=== PATIENT | male | born 1995 | race Caucasian/White ===

== ENCOUNTER 2017-09-17 13:54 | Emergency (ER) | payer SELFPAY ==
[~2017-09-17] VITALS: Ht 193 cm; Wt 87.3 kg
[2017-09-17 13:55] VITALS: TEMP 36.6; Ht 193 cm; Wt 87.3 kg
[2017-09-17] MEDS ORDERED: ONDANSETRON INJ 2 MG/ML 2 ML VIAL IV STA (14:11)
[2017-09-17] MEDS ORDERED: MoRPHine SULFATE 10 MG/ML CARP/VIAL IV STA (14:12)
[2017-09-17 14:29] LABS: BASO % 0.1 %; BASO ABS # 0.02 K/uL (0-0.2); HEMATOCRIT 45.8 % (42-52); HEMOGLOBIN 16.3 g/dL (14.0-18.0); IG# 0.03 K/uL (0.00-0.02); LYMPH ABS # 0.69 K/uL (1.2-3.4); MEAN CELL VOLUME 87.2 fL (80-100); MEAN CORPUSCULAR HGB CONC 35.6 g/dl (32-36); MEAN PLATELET VOLUME 10.1 fL (7.4-10.4); MONO % 3.9 %; MONO ABS # 0.54 K/uL (0.11-0.59); NEUT % 90.8 %; NEUT ABS # 12.65 K/uL (1.4-6.5); PLATELET COUNT 197 K/uL (130-400); RED CELL DISTRIBUTION WIDTH CV 12.3 % (11.5-14.5); RED CELL DISTRIBUTION WIDTH SD 39.4 fL (36.4-46.3); WHITE BLOOD COUNT 13.93 K/uL (4.8-10.8)
[2017-09-17 14:49] LABS: ALBUMIN 4.6 gm/dl (3.4-5.0); CALCIUM 9.5 mg/dl (8.5-10.1); CREATININE 0.92 mg/dl (0.60-1.40); TOTAL PROTEIN 7.8 gm/dl (6.4-8.2)
--- NOTE | 2017-09-17 15:41 | DIAGNOSTIC IMAGING REPORT ---
ABDOMEN 2VIEW W/PA CHEST RTN CLINICAL HISTORY: 22 years-old Male presenting with Generalized abdominal pain. TECHNIQUE: PA view of the chest and supine and upright views of the abdomen were obtained. COMPARISON: Chest x-ray from 11/23/[address] of the abdomen and pelvis from 07/20/2012. FINDINGS: Cardiomediastinal silhouette normal. Lungs and pleural spaces clear. Nonobstructive bowel gas pattern. No gross pneumoperitoneum. Allowing for bowel gas and stool, no calcifications to suggest nephrolithiasis. Posttraumatic deformity of the mid diaphysis of the right clavicle. IMPRESSION: 1. No acute cardiopulmonary disease. 2. No radiographic evidence of acute intra-abdominal pathology. Electronically signed by: Luis A Rojas M.D. 09/17/2017 3:40 PM Dictated Date/Time: 09/17/2017 3:38 PM
[2017-09-17] MEDS ORDERED: OPTIRAY 320 IV PRN (16:00)
--- NOTE | 2017-09-17 16:56 | DIAGNOSTIC IMAGING REPORT ---
ABD/PELVIS IV CONTRAST ONLY CLINICAL HISTORY: 22 years-old Male presenting with Generalized abdominal pain/elevated white count. TECHNIQUE: Multidetector CT of the abdomen and pelvis was performed after the administration of intravenous contrast. IV contrast: 87 mL of Optiray 320. A dose lowering technique was used consistent with the principles of ALARA (as low as reasonably achievable). COMPARISON: 07/20/2012. CT DOSE (mGy.cm): The estimated cumulative dose is 341.44 mGy.cm. 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 Lung bases: Minimal basilar opacities, likely atelectasis. Normal heart size. No pericardial or pleural effusion. Liver: Normal morphology. No liver lesion. Patent hepatic vasculature. Biliary: No intrahepatic or extrahepatic biliary ductal dilatation. Normal gallbladder. Pancreas: Normal. Spleen: Normal. Adrenal glands: Normal. Kidneys and ureters: Normal. No hydronephrosis. Bladder: Normal. Pelvic organs: Prostate and seminal vesicles normal. Left varicocele may be present. Bowel: Multiple appendicoliths noted. The appendix is nonsignificant dilated and contains gas. No inflammatory change in the right lower quadrant. No bowel obstruction. Peritoneal cavity: No free fluid or intraperitoneal gas. Lymph nodes: No enlarged lymph nodes in the abdomen or pelvis. Vasculature: Aorta and IVC patent and normal in caliber. Abdominal wall: Normal. Musculoskeletal: Normal. IMPRESSION: 1. No acute intra-abdominal pathology. 2. Appendicoliths without evidence of appendicitis. 3. Left varicocele. Electronically signed by: Luis A Rojas M.D. 09/17/2017 4:54 PM Dictated Date/Time: 09/17/2017 4:49 PM
[2017-09-17] MEDS ORDERED: HYDR-5688 PO (17:05)
[2017-09-17] MEDS ORDERED: ONDA4TAB10 SL (17:05)
--- NOTE | 2017-09-17 17:06 | EMERGENCY ROOM VISIT NOTE ---
History First contact with patient: 13:58 Chief Complaint: ABDOMINAL PAIN Stated Complaint: ABD PAIN Nursing Triage Summary: triage note: pt reports generalized abd pain since waking up today. pt reports nause. "i forced my self to throw up." History of Present Illness The patient is a 22 year old male who presents to the Emergency Room with complaints of abdominal pain. The patient states he woke up this morning and had abdominal pain. He describes it as "a knot of pain in his stomach." He rates it at the 8 out of 10. The patient also admits to associated nausea but denies any vomiting. Although the patient did try to make himself throw up. The patient denies any change in bowel habits. He had a normal bowel movement this morning. The patient denies any urinary symptoms of frequency, urgency, dysuria or hematuria. The patient denies any history of kidney stones or any abdominal surgeries. Patient denies any chest pain shortness of breath or dizziness. Review of Systems 10 system review was performed and was negative unless stated otherwise history of present illness. Past Medical/Surgical History Medical Problems: (1) Abdominal pain Social History Smoking Status: Never Smoker Alcohol Use: none Drug Use: none Marital Status: single, in relationship Housing Status: lives with family Occupation Status: employed Current/Historical Medications No Active Prescriptions or Reported Meds Physical Exam Vital Signs Date Time Temp Pulse Resp B/P (MAP) Pulse Ox O2 Delivery O2 Flow Rate FiO2 09/17/17 16:55 70 14 133/67 97 Room Air 09/17/17 14:36 64 14 124/63 95 Room Air 09/17/17 13:55 36.6 69 18 126/67 100 Room Air Physical Exam GENERAL: 22-year-old male appears in no acute distress. MENTAL Status: Alert and oriented 3. MOUTH: Mucosa is moist NECK: Supple, no lymphadenopathy noted. No carotid bruits noted. LUNGS: Clear auscultation without wheezes rales or rhonchi. CARDIAC: Regular rate and rhythm without murmur. Pulses is full and equal throughout. BACK: No CVA tenderness noted. ABDOMEN: Positive bowel sounds all 4 quadrants. Soft, mild generalized tenderness to palpation throughout without any specific point tenderness or organomegaly or masses. Negative Esqueda sign negative McBurney's point, no rebound tenderness noted EXTREMITIES: No cyanosis or edema noted. Medical Decision & Procedures ER Provider Diagnostic Interpretation: ABD/PELVIS IV CONTRAST ONLY CLINICAL HISTORY: 22 years-old Male presenting with Generalized abdominal pain/elevated white count. TECHNIQUE: Multidetector CT of the abdomen and pelvis was performed after the administration of intravenous contrast. IV contrast: 87 mL of Optiray 320. A dose lowering technique was used consistent with the principles of ALARA (as low as reasonably achievable). COMPARISON: 07/20/2012. CT DOSE (mGy.cm): The estimated cumulative dose is 341.44 mGy.cm. 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 Lung bases: Minimal basilar opacities, likely atelectasis. Normal heart size. No pericardial or pleural effusion. Liver: Normal morphology. No liver lesion. Patent hepatic vasculature. Biliary: No intrahepatic or extrahepatic biliary ductal dilatation. Normal gallbladder. Pancreas: Normal. Spleen: Normal. Adrenal glands: Normal. Kidneys and ureters: Normal. No hydronephrosis. Bladder: Normal. Pelvic organs: Prostate and seminal vesicles normal. Left varicocele may be present. Bowel: Multiple appendicoliths noted. The appendix is nonsignificant dilated and contains gas. No inflammatory change in the right lower quadrant. No bowel obstruction. Peritoneal cavity: No free fluid or intraperitoneal gas. Lymph nodes: No enlarged lymph nodes in the abdomen or pelvis. Vasculature: Aorta and IVC patent and normal in caliber. Abdominal wall: Normal. Musculoskeletal: Normal. IMPRESSION: 1. No acute intra-abdominal pathology. 2. Appendicoliths without evidence of appendicitis. 3. Left varicocele. Electronically signed by: Luis A Rojas M.D. 09/17/2017 4:54 PM Laboratory Results 09/17/17 14:15 Red Blood Count 5.25, Mean Corpuscular Volume 87.2, Mean Corpuscular Hemoglobin 31.0, Mean Corpuscular Hemoglobin Concent 35.6, Mean Platelet Volume 10.1, Neutrophils (%) (Auto) 90.8, Lymphocytes (%) (Auto) 5.0, Monocytes (%) (Auto) 3.9, Eosinophils (%) (Auto) 0.0, Basophils (%) (Auto) 0.1, Neutrophils # (Auto) 12.65, Lymphocytes # (Auto) 0.69, Monocytes # (Auto) 0.54, Eosinophils # (Auto) 0.00, Basophils # (Auto) 0.02 09/17/17 14:10 Test 09/17/17 14:10 09/17/17 14:15 09/17/17 14:58 Anion Gap 8.0 mmol/L (3-11) Est Creatinine Clear Calc Drug Dose 153.3 ml/min Estimated GFR () 135.4 Estimated GFR (Non- 116.8 BUN/Creatinine Ratio 15.2 (10-20) Calcium Level 9.5 mg/dl (8.5-10.1) Total Bilirubin 0.6 mg/dl (0.2-1) Direct Bilirubin 0.2 mg/dl (0-0.2) Aspartate Amino Transf (AST/SGOT) 11 U/L (15-37) Alanine Aminotransferase (ALT/SGPT) 21 U/L (12-78) Alkaline Phosphatase 75 U/L (45-117) Total Protein 7.8 gm/dl (6.4-8.2) Albumin 4.6 gm/dl (3.4-5.0) Lipase 47 U/L (73-393) White Blood Count 13.93 K/uL (4.8-10.8) Red Blood Count 5.25 M/uL (4.7-6.1) Hemoglobin 16.3 g/dL (14.0-18.0) Hematocrit 45.8 % (42-52) Mean Corpuscular Volume 87.2 fL (80-100) Mean Corpuscular Hemoglobin 31.0 pg (25-34) Mean Corpuscular Hemoglobin Concent 35.6 g/dl (32-36) Platelet Count 197 K/uL (130-400) Mean Platelet Volume 10.1 fL (7.4-10.4) Neutrophils (%) (Auto) 90.8 % Lymphocytes (%) (Auto) 5.0 % Monocytes (%) (Auto) 3.9 % Eosinophils (%) (Auto) 0.0 % Basophils (%) (Auto) 0.1 % Neutrophils # (Auto) 12.65 K/uL (1.4-6.5) Lymphocytes # (Auto) 0.69 K/uL (1.2-3.4) Monocytes # (Auto) 0.54 K/uL (0.11-0.59) Eosinophils # (Auto) 0.00 K/uL (0-0.5) Basophils # (Auto) 0.02 K/uL (0-0.2) RDW Standard Deviation 39.4 fL (36.4-46.3) RDW Coefficient of Variation 12.3 % (11.5-14.5) Immature Granulocyte % (Auto) 0.2 % Immature Granulocyte # (Auto) 0.03 K/uL (0.00-0.02) Urine Color DK YELLOW Urine Appearance TURBID (CLEAR) Urine pH 5.0 (4.5-7.5) Urine Specific [place] 1.027 (1.000-1.030) Urine Protein NEG (NEG) Urine Glucose (UA) NEG (NEG) Urine Ketones 3+ (NEG) Urine Occult Blood NEG (NEG) Urine Nitrite NEG (NEG) Urine Bilirubin NEG (NEG) Urine Urobilinogen NEG (NEG) Urine Leukocyte Esterase NEG (NEG) Urine WBC (Auto) 1-5 /hpf (0-5) Urine RBC (Auto) 0-4 /hpf (0-4) Urine Hyaline Casts (Auto) 5-10 /lpf (0-5) Urine Epithelial Cells (Auto) 0-5 /lpf (0-5) Urine Bacteria (Auto) NEG (NEG) Medications Administered Medications (Trade) Dose Ordered Sig/Mai Route Start Time Stop Time Status Last Admin Dose Admin Ondansetron HCl (Zofran Inj) 4 mg NOW STAT IV 09/17/17 14:11 09/17/17 14:12 DC 09/17/17 14:35 4 MG Morphine Sulfate (MoRPHine SULFATE INJ) 6 mg NOW STAT IV 09/17/17 14:12 09/17/17 14:13 DC 09/17/17 14:36 6 MG ED Course The patient was evaluated. Patient's EMR medication list were reviewed. IV access was obtained. The patient was given morphine 6 mg IV and Zofran 4 mg IV push. CBC and differential, renal profile, LFTs and lipase levels were ordered. Urinalysis was ordered. Abdominal series x-ray was ordered interpreted by the radiologist and myself as above without any acute findings. Labs are reviewed and were unremarkable except for elevated white count at close to 14,000. Urinalysis was negative. A CT of the abdomen pelvis was then ordered with IV contrast. CT was reviewed by the radiologist as above without any acute findings. The patient was informed of the findings and stated that his pain was starting to come back but was tolerable. He stated that he was afraid that the pain would get more severe when he got home I informed the patient I will give him a prescription for some pain meds and anti-nausea medicines. The patient was in agreement with treatment plan was discharged home with a family member driving. Medical Decision Differential diagnoses include reflux, gastritis, gastroenteritis, pancreatitis , cholelithiasis, cholecystitis, appendicitis, mesenteric ischemia, pyelonephritis, urinary tract infection, renal colic, diverticulitis, shingles, bowel obstruction, intussusception, hernia, [place] Drug Monitoring Program Search Results: patient reviewed within database Medication Reconcilliation Current Medication List: was personally reviewed by me Blood Pressure Screening Patient's blood pressure: Normal blood pressure Impression Primary Impression: Abdominal pain Departure Information Dispostion Home / Self-Care Condition GOOD Prescriptions Hydrocodone/Acetaminophen 5MG/325MG ([place] 5MG/325MG) Tab 1-2 TABLET PO Q6 Y for Pain, #20 TAB For Initial Treatment Prov: Renee Charlton PA-C 09/17/17 Ondasetron Odt (ZOFRAN ODT) 4 Mg Tab 4 MG SL Q6H for Nausea, #10 TAB Prov: Renee Charlton PA-C 09/17/17 Referrals No Doctor, Assigned (PCP) Forms HOME CARE DOCUMENTATION FORM, IMPORTANT VISIT INFORMATION Patient Instructions Abdominal Pain - [facility], [facility] Additional Instructions Push fluids. Ibuprofen 600 mg every 6 hours with food for pain. Take [place] as needed for more severe pain. Do not drive while taking the [place]. Take Zofran as needed for nausea. Follow-up with your family doctor in 2 days for recheck. If symptoms worsen, return to ER.
[2017-09-17] MEDS ORDERED: MoRPHine SULFATE 4 MG/ML 1 ML CARP\\VIAL IV STA (17:41)
[2017-09-17 17:52] VITALS: BP 110/57; PULSE 60; O2SAT 98
== END 2017-09-17 17:53 | disposition home or self-care (01) ==
LOC: C.EDB 13:55 → C.EDC 17:53
DX: R10.9 Unspecified abdominal pain (principal)

== ENCOUNTER 2017-09-19 11:45 | Inpatient (IN) | payer SELFPAY ==
[2017-09-19] VITALS (9 sets, daily range): BP systolic 119–134; BP diastolic 65–82; PULSE 82–103; TEMP 36.9–38.3; O2SAT 90–96; Ht 193 cm; Wt 85.9 kg
[~2017-09-19] VITALS: Ht 193 cm; Wt 85.9 kg
[~2017-09-19 11:45] MED LIST: HYDR-5688 PO; ONDA4TAB10 SL
[2017-09-19] MEDS ORDERED: ONDANSETRON INJ 2 MG/ML 2 ML VIAL IV STA (12:06)
[2017-09-19] MEDS ORDERED: MoRPHine SULFATE 10 MG/ML CARP/VIAL IV STA (12:06)
[2017-09-19] MEDS ORDERED: SODIUM CHLORIDE 0.9% 1000ML 1,000 ML IV STA ×2 (12:06→13:07)
[2017-09-19 12:18] LABS: BASO % 0.2 %; BASO ABS # 0.02 K/uL (0-0.2); EOS % 0.2 %; EOS ABS # 0.02 K/uL (0-0.5); HEMATOCRIT 46.2 % (42-52); HEMOGLOBIN 16.4 g/dL (14.0-18.0); IG# 0.03 K/uL (0.00-0.02); LYMPH % 8.9 %; LYMPH ABS # 1.16 K/uL (1.2-3.4); MEAN CELL VOLUME 88.3 fL (80-100); MEAN CORPUSCULAR HEMOGLOBIN 31.4 pg (25-34); MEAN CORPUSCULAR HGB CONC 35.5 g/dl (32-36); MEAN PLATELET VOLUME 10.2 fL (7.4-10.4); MONO % 9.5 %; MONO ABS # 1.23 K/uL (0.11-0.59); NEUT ABS # 10.55 K/uL (1.4-6.5); PLATELET COUNT 172 K/uL (130-400); RED CELL DISTRIBUTION WIDTH CV 12.2 % (11.5-14.5); RED CELL DISTRIBUTION WIDTH SD 39.3 fL (36.4-46.3); WHITE BLOOD COUNT 13.01 K/uL (4.8-10.8)
[2017-09-19] MEDS ORDERED: MoRPHine SULFATE 4 MG/ML 1 ML CARP\\VIAL ONE (12:19)
[2017-09-19] MEDS ORDERED: OPTIRAY 320 IV PRN (12:30)
[2017-09-19 12:39] LABS: ALBUMIN 3.8 gm/dl (3.4-5.0); CALCIUM 9.6 mg/dl (8.5-10.1); CREATININE 0.99 mg/dl (0.60-1.40); POTASSIUM 3.9 mmol/L (3.5-5.1)
[2017-09-19] MEDS ORDERED: ONDANSETRON INJ 2 MG/ML 2 ML VIAL IV PRN ×3 (13:00→17:15)
[2017-09-19] MEDS ORDERED: MoRPHine SULFATE 4 MG/ML 1 ML CARP\\VIAL IV PRN (13:00)
--- NOTE | 2017-09-19 13:42 | EMERGENCY ROOM VISIT NOTE ---
History First contact with patient: 11:54 Chief Complaint: ABDOMINAL PAIN Stated Complaint: SEVERE STOMACH PAIN Nursing Triage Summary: patient reports he was here with pain in center of stomach a couple days ago. pain has now moved to the right side. pain is worse History of Present Illness The patient is a 22 year old male who presents to the Emergency Room with complaints of right lower quadrant abdominal pain. The patient was seen here on Saturday complaining of periumbilical pain. He states over the past 2 days, the pain has continued to progressively worsen and has now localized to the right lower quadrant. The patient has been taking [place] and Zofran without relief in his pain. He does report chills, headache, and diaphoresis over the past 2 days. He denies any obvious fever, however has been taking [place] around- the-clock. He describes the pain as stabbing, and states it improves with relaxation and worsens with moving. The patient states his appetite has been decreased significantly, but he was able to tolerate pizza last night. He has not eaten or drink anything today. He does still have an appendix. The patient denies any chest pain, dyspnea, edema, recent injury, hematuria, urinary frequency, dysuria, hematochezia, diarrhea, constipation. Last bowel movement was yesterday morning and was normal. Review of Systems A complete 10 point review of systems was reviewed with the patient with pertinent positives and negatives as per history of present illness. All else were negative. Past Medical/Surgical History Medical Problems: (1) Abdominal pain (2) Acute appendicitis Social History Smoking Status: Never Smoker Smokeless Tobacco Use: No Alcohol Use: none Drug Use: none Marital Status: in relationship Housing Status: lives with family Occupation Status: employed Current/Historical Medications Scheduled Ondasetron Odt (Zofran Odt), 4 MG SL Q6H Scheduled PRN Hydrocodone/Acetaminophen 5MG/325MG ([place] 5MG/325MG), 1-2 TABLET PO Q6 PRN for Pain Physical Exam Vital Signs Date Time Temp Pulse Resp B/P (MAP) Pulse Ox O2 Delivery O2 Flow Rate FiO2 09/19/17 15:43 38.9 104 16 132/83 (99) 95 Room Air 09/19/17 15:23 37.5 105 20 132/78 94 09/19/17 15:19 37.5 105 20 132/78 94 Room Air 09/19/17 14:05 94 22 121/75 95 Room Air 09/19/17 13:02 94 18 124/76 94 Room Air 09/19/17 12:29 101 18 130/82 95 Room Air 09/19/17 12:25 109 09/19/17 12:22 95 Room Air 09/19/17 11:46 37.1 112 18 122/77 95 Room Air Physical Exam VITALS: Vitals are noted on the nurse's note and reviewed by myself. Vital signs stable. GENERAL: This is a 22-year-old white male, in no acute distress, nondiaphoretic , well-developed well-nourished. SKIN: The skin was without rashes, erythema, edema, or bruising. There is no tenting of the skin. Capillary reflex less than 2 seconds. HEAD: Normocephalic atraumatic. EARS: External auditory canals clear, tympanic membranes pearly boss without erythema or effusion bilaterally. EYES: Pupils equal round and reactive to light and accommodation. Conjunctivae without injection, sclerae without icterus. Extraocular movements intact. NOSE: Patent, turbinates without inflammation or discharge. No sinus tenderness. MOUTH: Mucous membranes moist. Tonsils are not enlarged. Pharynx without erythema or exudate. Uvula midline. Airway patent. Tongue does not deviate. NECK: Supple without nuchal rigidity. No lymphadenopathy. No thyromegaly. Cervical spine is nontender. No JVD. HEART: Regular rate and rhythm without murmurs gallops or rubs. LUNGS: Clear to auscultation bilaterally without wheezes, rales or rhonchi. No dullness to percussion. No retractions or accessory muscle use. ABDOMEN: Positive bowel sounds x 4. Normal tympanic percussion. The abdomen was firm. Significant tenderness over McBurney's point with guarding over the entire abdomen. Positive rebound tenderness. Positive Rovsing sign. No obvious masses or organomegaly. Esqueda sign negative. MUSCULOSKELETAL: No muscle atrophy, erythema, or edema noted. Full range of motion without joint tenderness in all extremities. No tenderness to palpation. Normal gait. Strength 5/5 throughout. NEURO: Patient was alert and oriented to person place and time. Normal sensation to light and sharp touch. No focal neurological deficits. Medical Decision & Procedures ER Provider Diagnostic Interpretation: PELVIS W/IV AND ORAL CONT (CT) CLINICAL HISTORY: 22 years-old Male presenting with RLQ pain. TECHNIQUE: Multidetector CT of the pelvis was performed after the administration of oral and intravenous contrast. IV contrast: 150 mL of Optiray 320. A dose lowering technique was used consistent with the principles of ALARA (as low as reasonably achievable). COMPARISON: 09/17/2017. CT DOSE (mGy.cm): The estimated cumulative dose is 230.43 mGy.cm. FINDINGS: Fisher Dip Net topogram: Unremarkable. Bladder: Normal. Pelvic organs: Prostate and seminal vesicles normal. Bowel: Appendicoliths again noted at the base of the appendix. There is now pathologic distention and significant wall thickening and inflammatory change associated with the appendix in the right lower quadrant. Gas is noted within the wall of the appendix raising concern for contained perforation. Hypodensity posterior and lateral to the appendix (series 3 image 81) raises concern for developing 2.5 cm abscess. Reactive wall thickening of the cecum. No bowel obstruction. Peritoneal cavity: Small amount of free fluid in the pelvis. Significant inflammatory change and possible developing loculated fluid collection/abscess in the right lower quadrant. No free intraperitoneal gas. Lymph nodes: Multiple prominent though subcentimeter mesenteric lymph nodes noted, likely reactive. Vasculature: Aorta and IVC patent and normal in caliber. Suspected varicoceles. Abdominal wall: Normal. Musculoskeletal: Normal. IMPRESSION: 1. Interval development of acute complicated appendicitis. Findings are concerning for gangrenous changes of the appendix with discontinuity of the appendiceal wall and contained perforation. Additionally, possible developing 2.5 cm abscess in the right lower quadrant. Redemonstration of appendicoliths at the appendiceal base, which were evident on the prior exam and are a risk factor for development of appendicitis. 2. Reactive mesenteric lymph nodes. 3. Reactive pelvic free fluid. No free gas. The report will be called/faxed according to standard departmental protocol. Electronically signed by: Luis A Rojas M.D. 09/19/2017 2:46 PM Dictated Date/Time: 09/19/2017 2:40 PM Laboratory Results 09/19/17 12:00 Red Blood Count 5.23, Mean Corpuscular Volume 88.3, Mean Corpuscular Hemoglobin 31.4, Mean Corpuscular Hemoglobin Concent 35.5, Mean Platelet Volume 10.2, Neutrophils (%) (Auto) 81.0, Lymphocytes (%) (Auto) 8.9, Monocytes (%) (Auto) 9.5, Eosinophils (%) (Auto) 0.2, Basophils (%) (Auto) 0.2, Neutrophils # (Auto) 10.55, Lymphocytes # (Auto) 1.16, Monocytes # (Auto) 1.23, Eosinophils # (Auto) 0.02, Basophils # (Auto) 0.02 09/19/17 12:00 Test 09/19/17 12:00 09/19/17 12:25 White Blood Count 13.01 K/uL (4.8-10.8) Red Blood Count 5.23 M/uL (4.7-6.1) Hemoglobin 16.4 g/dL (14.0-18.0) Hematocrit 46.2 % (42-52) Mean Corpuscular Volume 88.3 fL (80-100) Mean Corpuscular Hemoglobin 31.4 pg (25-34) Mean Corpuscular Hemoglobin Concent 35.5 g/dl (32-36) Platelet Count 172 K/uL (130-400) Mean Platelet Volume 10.2 fL (7.4-10.4) Neutrophils (%) (Auto) 81.0 % Lymphocytes (%) (Auto) 8.9 % Monocytes (%) (Auto) 9.5 % Eosinophils (%) (Auto) 0.2 % Basophils (%) (Auto) 0.2 % Neutrophils # (Auto) 10.55 K/uL (1.4-6.5) Lymphocytes # (Auto) 1.16 K/uL (1.2-3.4) Monocytes # (Auto) 1.23 K/uL (0.11-0.59) Eosinophils # (Auto) 0.02 K/uL (0-0.5) Basophils # (Auto) 0.02 K/uL (0-0.2) RDW Standard Deviation 39.3 fL (36.4-46.3) RDW Coefficient of Variation 12.2 % (11.5-14.5) Immature Granulocyte % (Auto) 0.2 % Immature Granulocyte # (Auto) 0.03 K/uL (0.00-0.02) Anion Gap 6.0 mmol/L (3-11) Est Creatinine Clear Calc Drug Dose 141.0 ml/min Estimated GFR () 123.9 Estimated GFR (Non- 106.9 BUN/Creatinine Ratio 14.0 (10-20) Calcium Level 9.6 mg/dl (8.5-10.1) Total Bilirubin 1.3 mg/dl (0.2-1) Aspartate Amino Transf (AST/SGOT) 15 U/L (15-37) Alanine Aminotransferase (ALT/SGPT) 22 U/L (12-78) Alkaline Phosphatase 75 U/L (45-117) Total Protein 8.0 gm/dl (6.4-8.2) Albumin 3.8 gm/dl (3.4-5.0) Globulin 4.2 gm/dl (2.5-4.0) Albumin/Globulin Ratio 0.9 (0.9-2) Lipase 54 U/L (73-393) Urine Color YVES Urine Appearance CLEAR (CLEAR) Urine pH 5.5 (4.5-7.5) Urine Specific [place] 1.027 (1.000-1.030) Urine Protein 1+ (NEG) Urine Glucose (UA) NEG (NEG) Urine Ketones 1+ (NEG) Urine Occult Blood NEG (NEG) Urine Nitrite NEG (NEG) Urine Bilirubin NEG (NEG) Urine Urobilinogen NEG (NEG) Urine Leukocyte Esterase NEG (NEG) Urine WBC (Auto) 1-5 /hpf (0-5) Urine RBC (Auto) 0-4 /hpf (0-4) Urine Hyaline Casts (Auto) 0 /lpf (0-5) Urine Epithelial Cells (Auto) 0-5 /lpf (0-5) Urine Bacteria (Auto) NEG (NEG) Medications Administered Medications (Trade) Dose Ordered Sig/Mai Route Start Time Stop Time Status Last Admin Dose Admin Sodium Chloride 1,000 ml @ 999 mls/hr Q1H1M STAT IV 09/19/17 12:06 09/19/17 13:06 DC 09/19/17 12:22 999 MLS/HR Ondansetron HCl (Zofran Inj) 4 mg NOW STAT IV 09/19/17 12:06 09/19/17 12:19 DC 09/19/17 12:22 4 MG Morphine Sulfate (MoRPHine SULFATE INJ) 8 mg STK-MED ONCE .ROUTE 09/19/17 12:19 8/9/18 12:20 DC 09/19/17 12:23 8 MG Morphine Sulfate (MoRPHine SULFATE INJ) 4 mg Q15M PRN IV 09/19/17 13:00 10/03/17 12:59 09/19/17 14:09 4 MG Sodium Chloride 1,000 ml @ 250 mls/hr Q4H STAT IV 09/19/17 13:07 09/19/17 17:06 DC 09/19/17 14:09 250 MLS/HR Ampicillin Sodium/ Sulbactam Sodium 3000 mg/Sodium Chloride 108 ml @ 200 mls/hr NOW ONCE IV 09/19/17 15:30 09/19/17 16:02 DC 09/19/17 15:48 200 MLS/HR Bupivacaine HCl/ Epinephrine Bitart (Sensorcaine/ Epinephrine 0.5% Mpf 1:200,000) 30 ml STK-MED ONCE .ROUTE 09/19/17 15:13 09/19/17 15:14 DC 09/19/17 17:05 10 ML Fentanyl Citrate (Fentanyl Inj) 25 mcg Q5M PRN IV 09/19/17 15:45 09/19/17 20:45 DC 09/19/17 18:00 25 MCG Lactated Ringer's 1,000 ml @ 125 mls/hr Q8H IV 09/19/17 17:06 10/19/17 17:05 09/19/17 19:12 125 MLS/HR ED Course The patient was seen and evaluated as above. IV access obtained, labs drawn. Patient was given 1 L normal saline solution, 8 mg morphine, 4 mg Zofran for his symptoms. I discussed the case with my attending. I consulted with surgery regarding the findings of CT scan 2 days ago on the patient's worsening symptoms with initial periumbilical pain now causing pain over McBurney's point. Surgery did recommend performing a repeat CT scan with IV and PO Contrast at this time. Labs reviewed by myself. Imaging performed and reviewed by myself and radiologist as above. I discussed the findings with the patient at bedside. The patient had already been seen by the surgeon and was told he would be going to the OR. I paged the surgical team and spoke with ILYA Napier. He states they saw and evaluated the patient and would be taking him to the OR. Please see surgery's dictation regarding further management and care of the patient. Medical Decision This is a 22-year-old male patient presents emergency department today complaining of right lower quadrant abdominal pain. The patient had been experiencing periumbilical pain approximately 2 days ago. He was discharged home with a negative CT scan with the exception of appendicoliths, but no obvious signs of acute appendicitis. The patient was discharged home with pain medication and antiemetics. He states over the past 2 days, his pain has been consistently worsening. He is now experiencing pain in the right lower quadrant , over McBurney's point. The patient does have an acute abdomen on examination , and there is significant guarding with diffuse tenderness. The patient has tenderness with any movement. The patient's CBC was elevated at 13,000. CMP showed mild hyponatremia at 131. Total bilirubin was elevated 1.3. Lipase was low at 54. Urinalysis was without signs of infection or blood, but was positive for 1+ ketones. Renal and hepatic function were without significant abnormalities. I had initially contacted the surgical team regarding the findings 2 days ago and the progression of symptoms with a surgical abdomen on examination. The physician housing assistant on the surgery team did recommend a repeat CT scan at this time. This was performed and did show evidence for acute appendicitis. The surgical team had seen the findings and came to evaluate the patient. I did speak with the team after their evaluation, and they state they are taking the patient to the operating room. The patient's pain and nausea were well controlled here in the emergency department with morphine and Zofran. Etiologies such as appendicitis, diverticulitis, obstruction, inflammatory bowel disease, renal colic, PUD, biliary pathology, pancreatitis, mesenteric ischemia, aortic pathology, infections, genitourinary, UTI, perforated viscus, as well as others were entertained. The chart was completed utilizing [employer]i Speech voice recognition software. Grammatical errors, random word insertions, pronoun errors, and incomplete sentences are an occasional consequence of this system due to software limitations, ambient noise, and hardware issues. Any formal questions or concerns about the content, text, or information contained within the body of this dictation should be directly addressed to the provider for clarification. Medication Reconcilliation Current Medication List: was personally reviewed by me Blood Pressure Screening Patient's blood pressure: Normal blood pressure Impression Primary Impression: Acute appendicitis Departure Information Dispostion Admitted as an inpatient Condition GOOD Referrals No Doctor, Assigned (PCP) Patient Instructions My [facility] Problem Qualifiers Primary Impression: Acute appendicitis Acute appendicitis type: with generalized peritonitis Qualified Codes: K35.2 - Acute appendicitis with generalized peritonitis
--- NOTE | 2017-09-19 14:48 | DIAGNOSTIC IMAGING REPORT ---
PELVIS W/IV AND ORAL CONT (CT) CLINICAL HISTORY: 22 years-old Male presenting with RLQ pain. TECHNIQUE: Multidetector CT of the pelvis was performed after the administration of oral and intravenous contrast. IV contrast: 150 mL of Optiray 320. A dose lowering technique was used consistent with the principles of ALARA (as low as reasonably achievable). COMPARISON: 09/17/2017. CT DOSE (mGy.cm): The estimated cumulative dose is 230.43 mGy.cm. FINDINGS: Tomography Technologist topogram: Unremarkable. Bladder: Normal. Pelvic organs: Prostate and seminal vesicles normal. Bowel: Appendicoliths again noted at the base of the appendix. There is now pathologic distention and significant wall thickening and inflammatory change associated with the appendix in the right lower quadrant. Gas is noted within the wall of the appendix raising concern for contained perforation. Hypodensity posterior and lateral to the appendix (series 3 image 81) raises concern for developing 2.5 cm abscess. Reactive wall thickening of the cecum. No bowel obstruction. Peritoneal cavity: Small amount of free fluid in the pelvis. Significant inflammatory change and possible developing loculated fluid collection/abscess in the right lower quadrant. No free intraperitoneal gas. Lymph nodes: Multiple prominent though subcentimeter mesenteric lymph nodes noted, likely reactive. Vasculature: Aorta and IVC patent and normal in caliber. Suspected varicoceles. Abdominal wall: Normal. Musculoskeletal: Normal. IMPRESSION: 1. Interval development of acute complicated appendicitis. Findings are concerning for gangrenous changes of the appendix with discontinuity of the appendiceal wall and contained perforation. Additionally, possible developing 2.5 cm abscess in the right lower quadrant. Redemonstration of appendicoliths at the appendiceal base, which were evident on the prior exam and are a risk factor for development of appendicitis. 2. Reactive mesenteric lymph nodes. 3. Reactive pelvic free fluid. No free gas. The report will be called/faxed according to standard departmental protocol. Electronically signed by: Luis A Rojas M.D. 09/19/2017 2:46 PM Dictated Date/Time: 09/19/2017 2:40 PM
[2017-09-19] MEDS ORDERED: LACTATED RINGER'S 1000ML 1,000 ML IV SCH (15:00)
[2017-09-19] MEDS ORDERED: MIDAZOLAM HCL 1 MG/ML 2ML VIAL ONE (15:10)
[2017-09-19] MEDS ORDERED: FENTANYL CITRATE INJ 50 MCG/1 ML 2 ML VIAL ONE ×2 (15:11→17:20)
[2017-09-19] MEDS ORDERED: PROPOFOL IV EMULSION 10 MG/ML 20 ML VIAL ONE (15:11)
[2017-09-19] MEDS ORDERED: ROCURONIUM BROMIDE 10 MG/ML 5 ML VIAL ONE (15:11)
[2017-09-19] MEDS ORDERED: LIDOCAINE HCL 2% 2 ML VIAL (20MG/ML) ONE (15:11)
[2017-09-19] MEDS ORDERED: ACETAMINOPHEN 1000 MG/100 ML IV IV ONE (15:20)
--- NOTE | 2017-09-19 15:23 | History and Physical ---
History & Physical Date & Time of Service: Sep 19, 2017 at 15:05 Chief Complaint: Severe Stomach Pain Primary Care Physician: No Doctor, Assigned History of Present Illness 22 y/o male seen 2 days ago in the ED for abdominal pain and discharged home on [place] after CT showed appendicolith without evidence of appendicitis. He has had persistent pain for the past 2 days and now localizing to the RLQ. Past Medical/Surgical History Medical Problems: (1) Abdominal pain Surgical: no abdominal surgery Social History Smoking Status: Never Smoker Smokeless Tobacco Use: No Drug Use: none Marital Status: in relationship Occupational Status: employed Allergies Coded Allergies: No Known Allergies (Unverified , 09/19/17) Home Medications Scheduled Ondasetron Odt (Zofran Odt), 4 MG SL Q6H Scheduled PRN Hydrocodone/Acetaminophen 5MG/325MG ([place] 5MG/325MG), 1-2 TABLET PO Q6 PRN for Pain Review of Systems Constitutional: No fever, No chills Abdomen: + pain, No nausea Physical Exam Vital Signs Date Time Temp Pulse Resp B/P (MAP) Pulse Ox O2 Delivery O2 Flow Rate FiO2 09/19/17 14:05 94 22 121/75 95 Room Air 09/19/17 13:02 94 18 124/76 94 Room Air 09/19/17 12:29 101 18 130/82 95 Room Air 09/19/17 12:25 109 09/19/17 12:22 95 Room Air 09/19/17 11:46 37.1 112 18 122/77 95 Room Air General Appearance: WD/WN, no apparent distress Respiratory/Chest: lungs clear Cardiovascular: regular rate, rhythm Abdomen/GI: soft, + tenderness (RLQ) Skin: normal color, warm/dry Diagnostics Laboratory Results Results Past 24 Hours Test 09/19/17 12:00 09/19/17 12:25 Range/Units White Blood Count 13.01 4.8-10.8 K/uL Red Blood Count 5.23 4.7-6.1 M/uL Hemoglobin 16.4 14.0-18.0 g/dL Hematocrit 46.2 42-52 % Mean Corpuscular Volume 88.3 80-100 fL Mean Corpuscular Hemoglobin 31.4 25-34 pg Mean Corpuscular Hemoglobin Concent 35.5 32-36 g/dl Platelet Count 172 130-400 K/uL Mean Platelet Volume 10.2 7.4-10.4 fL Neutrophils (%) (Auto) 81.0 % Lymphocytes (%) (Auto) 8.9 % Monocytes (%) (Auto) 9.5 % Eosinophils (%) (Auto) 0.2 % Basophils (%) (Auto) 0.2 % Neutrophils # (Auto) 10.55 1.4-6.5 K/uL Lymphocytes # (Auto) 1.16 1.2-3.4 K/uL Monocytes # (Auto) 1.23 0.11-0.59 K/uL Eosinophils # (Auto) 0.02 0-0.5 K/uL Basophils # (Auto) 0.02 0-0.2 K/uL RDW Standard Deviation 39.3 36.4-46.3 fL RDW Coefficient of Variation 12.2 11.5-14.5 % Immature Granulocyte % (Auto) 0.2 % Immature Granulocyte # (Auto) 0.03 0.00-0.02 K/uL Sodium Level 131 136-145 mmol/L Potassium Level 3.9 3.5-5.1 mmol/L Chloride Level 98 98-107 mmol/L Carbon Dioxide Level 27 21-32 mmol/L Anion Gap 6.0 3-11 mmol/L Blood Urea Nitrogen 14 7-18 mg/dl Creatinine 0.99 0.60-1.40 mg/dl Est Creatinine Clear Calc Drug Dose 141.0 ml/min Estimated GFR () 123.9 Estimated GFR (Non- 106.9 BUN/Creatinine Ratio 14.0 10-20 Random Glucose 123 70-99 mg/dl Calcium Level 9.6 8.5-10.1 mg/dl Total Bilirubin 1.3 0.2-1 mg/dl Aspartate Amino Transf (AST/SGOT) 15 15-37 U/L Alanine Aminotransferase (ALT/SGPT) 22 12-78 U/L Alkaline Phosphatase 75 45-117 U/L Total Protein 8.0 6.4-8.2 gm/dl Albumin 3.8 3.4-5.0 gm/dl Globulin 4.2 2.5-4.0 gm/dl Albumin/Globulin Ratio 0.9 0.9-2 Lipase 54 73-393 U/L Urine Color YVES Urine Appearance CLEAR CLEAR Urine pH 5.5 4.5-7.5 Urine Specific [place] 1.027 1.000-1.030 Urine Protein 1+ NEG Urine Glucose (UA) NEG NEG Urine Ketones 1+ NEG Urine Occult Blood NEG NEG Urine Nitrite NEG NEG Urine Bilirubin NEG NEG Urine Urobilinogen NEG NEG Urine Leukocyte Esterase NEG NEG Urine WBC (Auto) 1-5 0-5 /hpf Urine RBC (Auto) 0-4 0-4 /hpf Urine Hyaline Casts (Auto) 0 0-5 /lpf Urine Epithelial Cells (Auto) 0-5 0-5 /lpf Urine Bacteria (Auto) NEG NEG Diagnostic Radiology PELVIS W/IV AND ORAL CONT (CT) CLINICAL HISTORY: 22 years-old Male presenting with RLQ pain. TECHNIQUE: Multidetector CT of the pelvis was performed after the administration of oral and intravenous contrast. IV contrast: 150 mL of Optiray 320. A dose lowering technique was used consistent with the principles of ALARA (as low as reasonably achievable). COMPARISON: 09/17/2017. CT DOSE (mGy.cm): The estimated cumulative dose is 230.43 mGy.cm. FINDINGS: Stereotype Molder topogram: Unremarkable. Bladder: Normal. Pelvic organs: Prostate and seminal vesicles normal. Bowel: Appendicoliths again noted at the base of the appendix. There is now pathologic distention and significant wall thickening and inflammatory change associated with the appendix in the right lower quadrant. Gas is noted within the wall of the appendix raising concern for contained perforation. Hypodensity posterior and lateral to the appendix (series 3 image 81) raises concern for developing 2.5 cm abscess. Reactive wall thickening of the cecum. No bowel obstruction. Peritoneal cavity: Small amount of free fluid in the pelvis. Significant inflammatory change and possible developing loculated fluid collection/abscess in the right lower quadrant. No free intraperitoneal gas. Lymph nodes: Multiple prominent though subcentimeter mesenteric lymph nodes noted, likely reactive. Vasculature: Aorta and IVC patent and normal in caliber. Suspected varicoceles. Abdominal wall: Normal. Musculoskeletal: Normal. IMPRESSION: 1. Interval development of acute complicated appendicitis. Findings are concerning for gangrenous changes of the appendix with discontinuity of the appendiceal wall and contained perforation. Additionally, possible developing 2.5 cm abscess in the right lower quadrant. Redemonstration of appendicoliths at the appendiceal base, which were evident on the prior exam and are a risk factor for development of appendicitis. 2. Reactive mesenteric lymph nodes. 3. Reactive pelvic free fluid. No free gas. The report will be called/faxed according to standard departmental protocol. Electronically signed by: Luis A Rojas M.D. 09/19/2017 2:46 PM Dictated Date/Time: 09/19/2017 2:40 PM Impression Assessment and Plan Acute appendicitis Laparoscopic appendectomy (possible open) by Dr. Robert. Unasyn was given in the ED.
[2017-09-19] MEDS ORDERED: AMPICILLIN/SULBACTAM SOD INJ 3,000 MG in SODIUM CHLORIDE 0.9% 100ML 100 ML IV ONE (15:30)
[2017-09-19] MEDS ORDERED: EpHEDrine SULFATE INJ 50 MG/ML AMP IV PRN (15:45)
[2017-09-19] MEDS ORDERED: HYDROmorphone INJ 0.5 MG/0.5 ML SYR IV PRN (15:45)
[2017-09-19] MEDS ORDERED: ATROPINE SULFATE 0.1 MG/ML 5ML SYR IV PRN (15:45)
[2017-09-19] MEDS: BUPIVACAINE/EPINEPHRINE 0.5% MPF 1:200,000 30 ML VIAL ONE ×2 (16:05→17:05)
[2017-09-19] MEDS ORDERED: DEXAMETHASONE SOD INJ 4 MG/ML VIAL ONE (16:22)
[2017-09-19] MEDS ORDERED: ONDANSETRON INJ 2 MG/ML 2 ML VIAL ONE (16:22)
[2017-09-19] MEDS ORDERED: NEOSTIGMINE METHYLSULFATE 5 MG/5 ML SYR ONE (16:56)
[2017-09-19] MEDS ORDERED: GLYCOPYRROLATE INJ 0.2 MG/ML VIAL ONE (16:56)
--- NOTE | 2017-09-19 17:01 | [facility] Post Operative Brief Note ---
Immediate Operative Summary Operative Date Sep 19, 2017. Pre-Operative Diagnosis Acute Appendicitis Post-Operative Diagnosis Ruptured Acute Appendicitis Procedure(s) Performed Laparoscopic Appendectomy and Enterolysis Surgeon Dr. Robert Adult [employer] Surgeon(s) Ramesh Obrien PA-C Estimated Blood Loss 5cc Findings Consistent with Post-Op Diagnosis Specimens A. Appendix Anesthesia Type General Complication(s) none
[2017-09-19] MEDS ORDERED: HYDROCODONE/ACETAMIN 5/325MG TAB PO PRN (17:15)
--- NOTE | 2017-09-19 17:18 | [facility] Operative Report ---
Operative Report Operative Date Sep 19, 2017. Pre-Operative Diagnosis Acute Appendicitis Post-Operative Diagnosis Ruptured Acute Appendicitis Procedure(s) Performed Laparoscopic Appendectomy and Enterolysis Surgeon Dr. Robert First Aid Nurse Surgeon(s) Ramesh Obrien PA-C Estimated Blood Loss 5cc Specimens A. Appendix Anesthesia Type General Complication(s) none Description of Procedure After informed consent was obtained the patient was taken to the operating room and placed in supine position. After successful intubation a Leyva catheter was placed and the abdomen was shaved and sterilely prepped and draped in usual fashion. I began with an infra umbilical incision with an 11 blade scalpel and carried this down through the soft tissues using electrocautery. The anterior rectus fascia was opened using electrocautery and 2 #0 Vicryl stay sutures were placed. Peritoneum was elevated with hemostats and incised under direct visualization, a finger sweep was performed and a 12 mm Burton trocar was placed. The abdomen was insufflated to 18 mmHg. The laparoscope was inserted and the abdomen examined in 360 degrees. There was obvious acute inflammation the right lower quadrant as well as some pus and purulent fluid in the pelvis. I placed a suprapubic 5 mm port in the left lower quadrant 12 mm port under direct vision. The patient was placed in a Trendelenburg position and slightly air planed to the left. When we peeled the cecum away from the right lower quadrant sidewall there was an obvious ruptured appendicitis. The tip appeared ischemic and there was free purulent fluid coming out of the tip. The terminal ileum was adhesed to the right lower quadrant sidewall. I had used traction countertraction and sharp scissor lysis to take down these adhesions and then bluntly peeled it away from the sidewall. I dissected down to what I originally thought was the base of the appendix. I was unable to roll the cecum medially any further so I therefore transected the appendix with a LINUS purple cartridge stapler. I I placed this into an Endo Catch bag and removed from the abdomen from the camera port site. After I had removed that I was then able to get better vision. I was able to see the proximal appendix. Because of the angle I had to transect the base of the appendix with 2 separate LINUS purple cartridge firings. These were removed from the camera port site as well. After doing this I could then see the junction with the cecum and was confident that I had not left any of the appendix behind. There was adequate hemostasis and the staple line looked good. I thoroughly irrigated the right lower quadrant and pelvis until all the irrigant was clear. We suctioned out all the fluid. We did run the terminal ileum back for several feet. The remainder of the abdomen looked essentially normal. I placed a 10 flat Bj- Paulino drain in the pelvis up along the right paracolic gutter and brought out through the left lower quadrant incision. It was secured to the skin using 2-0 nylon. All the trochars were then removed and the abdomen was the plated. The fascia of the camera port was closed using 0 Vicryl in [id number] fashion. Wounds were irrigated and closed using 4-0 Monocryl. Marcaine was injected around them for postoperative analgesia and skin glue used as a dressing. My physician's social services assistant was present for the entire case. He helped prep the patient. He helped run the camera and retract throughout the case. He also helped with wound closure and dressing placement at the end of the case. I attest to the content of the Intraoperative Record and any orders documented therein. Any exceptions are noted below.
[2017-09-19] MEDS: FENTANYL CITRATE INJ 50 MCG/1 ML 2 ML VIAL IV PRN ×4 (17:40→18:00)
--- NOTE | 2017-09-19 18:12 | Anesthesiology Progress Note ---
Anesthesia Post Op Note Date & Time Sep 19, 2017 at 18:12 Vital Signs Pain Intensity: 4 Vital Signs Past 12 Hours Date Time Temp Pulse Resp B/P (MAP) Pulse Ox O2 Delivery O2 Flow Rate FiO2 09/19/17 18:05 71 18 126/68 97 Nasal Cannula 4 09/19/17 17:55 84 16 135/78 94 Nasal Cannula 4 09/19/17 17:45 88 16 134/75 96 Oxymask 10 09/19/17 17:35 92 17 148/89 93 Oxymask 10 09/19/17 17:26 38.3 95 18 144/85 94 Oxymask 10 09/19/17 15:43 38.9 104 16 132/83 (99) 95 Room Air 09/19/17 15:23 37.5 105 20 132/78 94 09/19/17 15:19 37.5 105 20 132/78 94 Room Air 09/19/17 14:05 94 22 121/75 95 Room Air 09/19/17 13:02 94 18 124/76 94 Room Air 09/19/17 12:29 101 18 130/82 95 Room Air 09/19/17 12:25 109 09/19/17 12:22 95 Room Air 09/19/17 11:46 37.1 112 18 122/77 95 Room Air Notes Mental Status: alert / awake / arousable, participated in evaluation Pt Amnestic to Procedure: Yes Nausea / Vomiting: adequately controlled Pain: adequately controlled Airway Patency, RR, SpO2: stable & adequate BP & HR: stable & adequate Hydration State: stable & adequate Anesthetic Complications: no major complications apparent
[2017-09-19] MEDS ORDERED: IV FLUIDS COMPLETED PRN (18:15)
[2017-09-19] MEDS: MoRPHine SULFATE 2 MG/ML CARP IV PRN (19:09)
[2017-09-19] MEDS: LACTATED RINGER'S 1000ML 1,000 ML IV SCH (19:12)
[2017-09-19] MEDS: PIPERACILL/TAZOBAC IV 3.375 GM in DEXTROSE 5% 100ML 100 ML IV SCH (21:53)
[2017-09-19] MEDS: MoRPHine SULFATE 4 MG/ML 1 ML CARP\\VIAL IV PRN (22:07)
[2017-09-20] VITALS (7 sets, daily range): BP systolic 110–129; BP diastolic 64–76; PULSE 76–104; TEMP 36.9–38; O2SAT 92–98
[2017-09-20] MEDS: LACTATED RINGER'S 1000ML 1,000 ML IV SCH ×3 (01:06→17:55)
[2017-09-20] MEDS: HYDROCODONE/ACETAMIN 5/325MG TAB PO PRN ×2 (01:34→12:32)
[2017-09-20] MEDS: MoRPHine SULFATE 4 MG/ML 1 ML CARP\\VIAL IV PRN ×2 (03:28→11:00)
[2017-09-20] MEDS: PIPERACILL/TAZOBAC IV 3.375 GM in DEXTROSE 5% 100ML 100 ML IV SCH ×3 (05:37→22:40)
--- NOTE | 2017-09-20 05:37 | Discharge Instructions ---
Discharge Instructions Date of Service Sep 20, 2017. Admission Reason for Admission: Acute Appendicitis Discharge Discharge Diagnosis / Problem: Acute appendicitis Discharge Goals Goal(s): Decrease discomfort, Improve function Activity Recommendations Activity Limitations: as noted below Lifting Limitations: no more than 10 pounds, until after follow-up appointment Exercise/Sports Limitations: until after follow-up appointment May Resume Sexual Activity: after follow-up appointment Shower/Bathe: tomorrow Driving or Machine Use: resume 3 days after discharge (Please do not drive while using narcotic pain medication) . Instructions / Follow-Up Instructions / Follow-Up You have surgical glue covering your incision sites. Please allow this to fall off on its own. You have been prescribed [place] to take as needed for pain relief. Please use as directed. Follow-up with Dr. Robert in 1-2 weeks. Please contact our office at [phone] to schedule an appointment if you have not done so already. Please contact our office with any further [place] [address] Current Hospital Diet Patient's current hospital diet: Clear Liquid Diet Discharge Diet Recommended Diet: Regular Diet Procedures Procedures Performed: Laparoscopic Appendectomy and Enterolysis Pending Studies Studies pending at discharge: yes List of pending studies: pathology Medical Emergencies . Who to Call and When: Medical Emergencies: If at any time you feel your situation is an emergency, please call 911 immediately. . Non-Emergent Contact Non-Emergency issues call your: Primary Care Provider, Surgeon Call Non-Emergent contact if: you have a fever, temperature is above 101.5, your pain is not controlled, your pain is worsening, wound has increased drainage, wound has increased redness . "Provider Documentation" section prepared by Adalid Worrell. . [place] Drug Monitoring Program Search Results: patient reviewed within database, no issues identified
--- NOTE | 2017-09-20 06:28 | Surgery Progress Note ---
Surgery Progress Note Date of Service Sep 20, 2017. Subjective Post OP Day: 1 + feeling well, + complaints (having some trouble urinating and slight pain with urination), + ambulating, + pain controlled, + diet (Tolerating clears. ), No bowel movement, No flatus, No nausea, No vomiting Objective Vital Signs: Date Time Temp Pulse Resp B/P (MAP) Pulse Ox O2 Delivery O2 Flow Rate FiO2 09/20/17 03:20 37.6 104 16 123/72 (89) 92 Room Air 09/20/17 00:00 Room Air 09/20/17 00:00 38.0 09/19/17 23:02 38.3 95 16 119/65 (83) 90 Room Air 09/19/17 21:38 37.6 94 17 129/73 (91) 92 Room Air 09/19/17 20:39 37.5 103 18 124/72 (89) 96 Nasal Cannula 2.0 09/19/17 19:30 36.9 82 17 134/82 (99) 95 Nasal Cannula 2.0 09/19/17 19:26 95 Nasal Cannula 2.0 09/19/17 19:17 95 Nasal Cannula 4.0 09/19/17 19:00 37.3 82 16 132/76 (94) 95 Nasal Cannula 2.0 09/19/17 18:49 36.9 93 18 130/75 94 Nasal Cannula 2.0 09/19/17 18:30 36.9 93 18 130/75 (93) 95 Nasal Cannula 4.0 09/19/17 18:15 38.3 73 18 126/68 95 Nasal Cannula 4 09/19/17 18:05 71 18 126/68 97 Nasal Cannula 4 09/19/17 17:55 84 16 135/78 94 Nasal Cannula 4 09/19/17 17:45 88 16 134/75 96 Oxymask 10 09/19/17 17:35 92 17 148/89 93 Oxymask 10 09/19/17 17:26 38.3 95 18 144/85 94 Oxymask 10 09/19/17 15:43 38.9 104 16 132/83 (99) 95 Room Air 09/19/17 15:23 37.5 105 20 132/78 94 09/19/17 15:19 37.5 105 20 132/78 94 Room Air 09/19/17 14:05 94 22 121/75 95 Room Air 09/19/17 13:02 94 18 124/76 94 Room Air 09/19/17 12:29 101 18 130/82 95 Room Air 09/19/17 12:25 109 09/19/17 12:22 95 Room Air 09/19/17 11:46 37.1 112 18 122/77 95 Room Air Physical Exam: ALEJANDRO drainage (130ml/50ml, serosang) General Appearance: WD/WN, no apparent distress Head: normocephalic, atraumatic Respiratory/Chest: no respiratory distress Abdomen: soft, no organomegaly, + distended (mild - moderate), + tenderness ( Moderate incisional TTP) Incision(s): clean, dry, intact, no erythema, no drainage Laboratory Results: Results Past 24 Hours Test 09/19/17 12:00 09/19/17 12:25 09/20/17 04:44 Range/Units White Blood Count 13.01 4.8-10.8 K/uL Red Blood Count 5.23 4.7-6.1 M/uL Hemoglobin 16.4 14.0-18.0 g/dL Hematocrit 46.2 42-52 % Mean Corpuscular Volume 88.3 80-100 fL Mean Corpuscular Hemoglobin 31.4 25-34 pg Mean Corpuscular Hemoglobin Concent 35.5 32-36 g/dl Platelet Count 172 130-400 K/uL Mean Platelet Volume 10.2 7.4-10.4 fL Neutrophils (%) (Auto) 81.0 % Lymphocytes (%) (Auto) 8.9 % Monocytes (%) (Auto) 9.5 % Eosinophils (%) (Auto) 0.2 % Basophils (%) (Auto) 0.2 % Neutrophils # (Auto) 10.55 1.4-6.5 K/uL Lymphocytes # (Auto) 1.16 1.2-3.4 K/uL Monocytes # (Auto) 1.23 0.11-0.59 K/uL Eosinophils # (Auto) 0.02 0-0.5 K/uL Basophils # (Auto) 0.02 0-0.2 K/uL RDW Standard Deviation 39.3 36.4-46.3 fL RDW Coefficient of Variation 12.2 11.5-14.5 % Immature Granulocyte % (Auto) 0.2 % Immature Granulocyte # (Auto) 0.03 0.00-0.02 K/uL Sodium Level 131 136-145 mmol/L Potassium Level 3.9 3.5-5.1 mmol/L Chloride Level 98 98-107 mmol/L Carbon Dioxide Level 27 21-32 mmol/L Anion Gap 6.0 3-11 mmol/L Blood Urea Nitrogen 14 7-18 mg/dl Creatinine 0.99 0.60-1.40 mg/dl Est Creatinine Clear Calc Drug Dose 141.0 ml/min Estimated GFR () 123.9 Estimated GFR (Non- 106.9 BUN/Creatinine Ratio 14.0 10-20 Random Glucose 123 70-99 mg/dl Calcium Level 9.6 8.5-10.1 mg/dl Total Bilirubin 1.3 0.2-1 mg/dl Aspartate Amino Transf (AST/SGOT) 15 15-37 U/L Alanine Aminotransferase (ALT/SGPT) 22 12-78 U/L Alkaline Phosphatase 75 45-117 U/L Total Protein 8.0 6.4-8.2 gm/dl Albumin 3.8 3.4-5.0 gm/dl Globulin 4.2 2.5-4.0 gm/dl Albumin/Globulin Ratio 0.9 0.9-2 Lipase 54 73-393 U/L Urine Color YVES Urine Appearance CLEAR CLEAR Urine pH 5.5 4.5-7.5 Urine Specific [place] 1.027 1.000-1.030 Urine Protein 1+ NEG Urine Glucose (UA) NEG NEG Urine Ketones 1+ NEG Urine Occult Blood NEG NEG Urine Nitrite NEG NEG Urine Bilirubin NEG NEG Urine Urobilinogen NEG NEG Urine Leukocyte Esterase NEG NEG Urine WBC (Auto) 1-5 0-5 /hpf Urine RBC (Auto) 0-4 0-4 /hpf Urine Hyaline Casts (Auto) 0 0-5 /lpf Urine Epithelial Cells (Auto) 0-5 0-5 /lpf Urine Bacteria (Auto) NEG NEG Assessment & Plan POD #1 s/p lap appy for ruptured appendicitis Abdomen soft, moderately distended with moderate incisional TTP (expected). Tolerating clears, no N/V. Having some slight pain and trouble with urination - likely due to perioperative cath - will monitor. AM labs pending - continue IV Zosyn. Full liquids for breakfast, see how he tolerates - ADAT. Possible d/c today depending on how he does but may need 1 more day. Contact with questions or concerns.
[2017-09-20 07:07] LABS: BASO % 0.1 %; BASO ABS # 0.01 K/uL (0-0.2); HEMATOCRIT 42.1 % (42-52); HEMOGLOBIN 14.6 g/dL (14.0-18.0); IG# 0.02 K/uL (0.00-0.02); LYMPH % 6.4 %; LYMPH ABS # 0.78 K/uL (1.2-3.4); MEAN CELL VOLUME 88.3 fL (80-100); MEAN CORPUSCULAR HEMOGLOBIN 30.6 pg (25-34); MEAN CORPUSCULAR HGB CONC 34.7 g/dl (32-36); MEAN PLATELET VOLUME 10.2 fL (7.4-10.4); MONO % 11.5 %; MONO ABS # 1.39 K/uL (0.11-0.59); NEUT % 81.8 %; NEUT ABS # 9.92 K/uL (1.4-6.5); PLATELET COUNT 161 K/uL (130-400); RED CELL DISTRIBUTION WIDTH CV 12.1 % (11.5-14.5); RED CELL DISTRIBUTION WIDTH SD 39.2 fL (36.4-46.3); WHITE BLOOD COUNT 12.12 K/uL (4.8-10.8)
[2017-09-20] MEDS ORDERED: PIPERACILL/TAZOBAC CONSULT ACTIVE PRN (07:30)
[2017-09-20] MEDS ORDERED: AMOX875T PO (07:34)
[2017-09-20] MEDS ORDERED: HYDR-5688 PO (07:34)
--- NOTE | 2017-09-20 08:32 | Anesthesiology Progress Note ---
Anesthesia Post Op Note Date & Time Sep 20, 2017 at 08:30 Vital Signs Vital Signs Past 12 Hours Date Time Temp Pulse Resp B/P (MAP) Pulse Ox O2 Delivery O2 Flow Rate FiO2 09/20/17 07:34 37.0 76 16 110/65 (80) 93 Room Air 09/20/17 03:20 37.6 104 16 123/72 (89) 92 Room Air 09/20/17 00:00 Room Air 09/20/17 00:00 38.0 09/19/17 23:02 38.3 95 16 119/65 (83) 90 Room Air 09/19/17 21:38 37.6 94 17 129/73 (91) 92 Room Air 09/19/17 20:39 37.5 103 18 124/72 (89) 96 Nasal Cannula 2.0 Notes Mental Status: alert / awake / arousable, participated in evaluation Pt Amnestic to Procedure: Yes Nausea / Vomiting: adequately controlled Pain: adequately controlled Airway Patency, RR, SpO2: stable & adequate BP & HR: stable & adequate Hydration State: stable & adequate Anesthetic Complications: no major complications apparent
[2017-09-20] MEDS: MoRPHine SULFATE 2 MG/ML CARP IV PRN (12:32)
[2017-09-20] MEDS ORDERED: NURSING VERBAL MED ORDER ONE ×2 (13:00→13:30)
[2017-09-20] MEDS: ACETAMINOPHEN IV 1000MG/100ML IV SCH ×2 (13:42→22:40)
[2017-09-20] MEDS ORDERED: PIPERACILL/TAZOBAC IV 3.375 GM in DEXTROSE 5% 100ML 100 ML IV SCH (14:00)
[2017-09-21] MEDS: LACTATED RINGER'S 1000ML 1,000 ML IV SCH ×3 (01:03→18:21)
[2017-09-21] MEDS: OXYCODONE HCL IR 5 MG TAB (IMMEDIATE RELEASE) PO PRN ×5 (01:12→23:06)
[2017-09-21] MEDS: MoRPHine SULFATE 2 MG/ML CARP IV PRN (04:14)
[2017-09-21] MEDS: ACETAMINOPHEN IV 1000MG/100ML IV SCH ×3 (05:46→21:43)
[2017-09-21] MEDS: PIPERACILL/TAZOBAC IV 3.375 GM in DEXTROSE 5% 100ML 100 ML IV SCH ×3 (05:49→21:44)
[2017-09-21 07:31] VITALS: BP 119/69; PULSE 82; TEMP 36.5; O2SAT 92
[2017-09-21] MEDS ORDERED: BISACODYL 10 MG SUPP PR STA (09:49)
--- NOTE | 2017-09-21 09:55 | Surgery Progress Note ---
Surgery Progress Note Date of Service Sep 21, 2017. Subjective F/U S/P appendectomy for perforated appendicitis, POD 2 pt is doing fine, he tolerated diet, no nausea, no vomiting, no fever. ALEJANDRO 40ml , no BM yet Objective Vital Signs: Date Time Temp Pulse Resp B/P (MAP) Pulse Ox O2 Delivery O2 Flow Rate FiO2 09/21/17 08:11 Room Air 09/21/17 07:31 36.5 82 16 119/69 (86) 92 Room Air 09/20/17 23:45 Room Air 09/20/17 23:12 36.9 79 16 129/65 (86) 98 Room Air 09/20/17 19:17 36.9 90 18 122/73 (89) 93 Room Air 09/20/17 17:30 Room Air 09/20/17 14:59 36.9 80 16 111/64 (80) 92 Room Air 09/20/17 11:37 37.0 92 16 126/76 (93) 95 Room Air General Appearance: WD/WN, + mild distress Head: normocephalic Neck: supple, no JVD Respiratory/Chest: chest non-tender, lungs clear Cardiovascular: regular rate, rhythm, no edema, no gallop, no JVD Abdomen: normal bowel sounds, soft, + tenderness (at RLQ, no distend) Incision(s): clean, dry, intact Extremities: normal range of motion, non-tender, normal inspection Assessment & Plan pt said he is not ready to go home yet, keep ALEJANDRO drainage, continue IV antibiotic, repeat labs, in am, dulcolax pr will F/U
[2017-09-21 11:39] VITALS: BP 129/81; PULSE 95; TEMP 37.1; O2SAT 94
[2017-09-21 15:18] VITALS: BP 136/75; PULSE 105; TEMP 37.7; O2SAT 91
[2017-09-21 23:00] VITALS: BP 119/72; PULSE 84; TEMP 37.2; O2SAT 93
[2017-09-22] MEDS: LACTATED RINGER'S 1000ML 1,000 ML IV SCH ×3 (01:41→21:24)
[2017-09-22] MEDS: OXYCODONE HCL IR 5 MG TAB (IMMEDIATE RELEASE) PO PRN ×4 (03:55→19:49)
[2017-09-22] MEDS: ACETAMINOPHEN IV 1000MG/100ML IV SCH ×3 (05:30→21:25)
[2017-09-22] MEDS: PIPERACILL/TAZOBAC IV 3.375 GM in DEXTROSE 5% 100ML 100 ML IV SCH ×3 (05:31→21:35)
[2017-09-22 07:27] LABS: BASO % 0.4 %; BASO ABS # 0.03 K/uL (0-0.2); EOS % 1.7 %; EOS ABS # 0.14 K/uL (0-0.5); HEMATOCRIT 39.5 % (42-52); HEMOGLOBIN 13.9 g/dL (14.0-18.0); IG# 0.03 K/uL (0.00-0.02); LYMPH % 11.6 %; LYMPH ABS # 0.96 K/uL (1.2-3.4); MEAN CELL VOLUME 89.2 fL (80-100); MEAN CORPUSCULAR HEMOGLOBIN 31.4 pg (25-34); MEAN CORPUSCULAR HGB CONC 35.2 g/dl (32-36); MEAN PLATELET VOLUME 9.7 fL (7.4-10.4); MONO % 12.1 %; NEUT % 73.8 %; NEUT ABS # 6.12 K/uL (1.4-6.5); PLATELET COUNT 205 K/uL (130-400); RED CELL DISTRIBUTION WIDTH CV 12.1 % (11.5-14.5); RED CELL DISTRIBUTION WIDTH SD 39.3 fL (36.4-46.3); WHITE BLOOD COUNT 8.28 K/uL (4.8-10.8)
[2017-09-22 07:45] VITALS: BP 115/70; PULSE 87; TEMP 37.2; O2SAT 93
[2017-09-22 08:01] LABS: ALBUMIN 2.7 gm/dl (3.4-5.0); ALKALINE PHOSPHATASE 94 U/L (45-117); ALT/SGPT 41 U/L (12-78); AST/SGOT 32 U/L (15-37); BLOOD UREA NITROGEN 9 mg/dl (7-18); CALCIUM 8.5 mg/dl (8.5-10.1); CARBON DIOXIDE 29 mmol/L (21-32); GLUCOSE 87 mg/dl (70-99); POTASSIUM 3.6 mmol/L (3.5-5.1); SODIUM 136 mmol/L (136-145); TOTAL PROTEIN 6.7 gm/dl (6.4-8.2)
--- NOTE | 2017-09-22 13:00 | Surgery Progress Note ---
Surgery Progress Note Date of Service Sep 22, 2017. Subjective Post OP Day: 2 + feeling well pt is doing fine, but pt is still have pain medicine every 4 hours for abdominal pain, passed BM last night, some temp 37.2, ALEJANDRO 140ml /24 h, clear, he tolerated diet, no nausea, no vomiting, Objective Vital Signs: Date Time Temp Pulse Resp B/P (MAP) Pulse Ox O2 Delivery O2 Flow Rate FiO2 09/22/17 08:15 Room Air 09/22/17 07:45 37.2 87 16 115/70 (85) 93 Room Air 09/21/17 23:33 Room Air 09/21/17 23:00 37.2 84 16 119/72 (88) 93 Room Air 09/21/17 15:25 Room Air 09/21/17 15:18 37.7 105 17 136/75 (95) 91 Room Air General Appearance: WD/WN, + mild distress Head: normocephalic Neck: supple, no JVD Respiratory/Chest: chest non-tender, lungs clear Cardiovascular: regular rate, rhythm, no edema, no gallop Abdomen: normal bowel sounds, + tenderness (at RLQ) Incision(s): clean, dry, intact Extremities: normal range of motion, non-tender, normal inspection Laboratory Results: Results Past 24 Hours Test 09/22/17 06:55 Range/Units White Blood Count 8.28 4.8-10.8 K/uL Red Blood Count 4.43 4.7-6.1 M/uL Hemoglobin 13.9 14.0-18.0 g/dL Hematocrit 39.5 42-52 % Mean Corpuscular Volume 89.2 80-100 fL Mean Corpuscular Hemoglobin 31.4 25-34 pg Mean Corpuscular Hemoglobin Concent 35.2 32-36 g/dl Platelet Count 205 130-400 K/uL Mean Platelet Volume 9.7 7.4-10.4 fL Neutrophils (%) (Auto) 73.8 % Lymphocytes (%) (Auto) 11.6 % Monocytes (%) (Auto) 12.1 % Eosinophils (%) (Auto) 1.7 % Basophils (%) (Auto) 0.4 % Neutrophils # (Auto) 6.12 1.4-6.5 K/uL Lymphocytes # (Auto) 0.96 1.2-3.4 K/uL Monocytes # (Auto) 1.00 0.11-0.59 K/uL Eosinophils # (Auto) 0.14 0-0.5 K/uL Basophils # (Auto) 0.03 0-0.2 K/uL RDW Standard Deviation 39.3 36.4-46.3 fL RDW Coefficient of Variation 12.1 11.5-14.5 % Immature Granulocyte % (Auto) 0.4 % Immature Granulocyte # (Auto) 0.03 0.00-0.02 K/uL Sodium Level 136 136-145 mmol/L Potassium Level 3.6 3.5-5.1 mmol/L Chloride Level 99 98-107 mmol/L Carbon Dioxide Level 29 21-32 mmol/L Anion Gap 8.0 3-11 mmol/L Blood Urea Nitrogen 9 7-18 mg/dl Creatinine 0.70 0.60-1.40 mg/dl Est Creatinine Clear Calc Drug Dose 199.4 ml/min Estimated GFR () > 150.0 Estimated GFR (Non- 133.0 BUN/Creatinine Ratio 12.2 10-20 Random Glucose 87 70-99 mg/dl Calcium Level 8.5 8.5-10.1 mg/dl Total Bilirubin 1.2 0.2-1 mg/dl Aspartate Amino Transf (AST/SGOT) 32 15-37 U/L Alanine Aminotransferase (ALT/SGPT) 41 12-78 U/L Alkaline Phosphatase 94 45-117 U/L Total Protein 6.7 6.4-8.2 gm/dl Albumin 2.7 3.4-5.0 gm/dl Globulin 4.0 2.5-4.0 gm/dl Albumin/Globulin Ratio 0.7 0.9-2 Assessment & Plan pt said he is not ready to go home yet, keep ALEJANDRO drainage, continue IV antibiotic, repeat labs, in am, dulcolax pr will F/U 09/22/2017 doing better, base on pt is still have some abdominal pain, ALEJANDRO drainage output high, temp 37.2 pt needs one more day IV antibiotic, may D/C home tomorrow, pt agrees with the plan, pt said he is not ready to go home yet, keep ALEJANDRO drainage, continue IV antibiotic, repeat labs, in am, dulcolax pr will F/U
[2017-09-22 15:12] VITALS: BP 127/74; PULSE 93; TEMP 36.6; O2SAT 92
[2017-09-22 22:45] VITALS: BP 118/71; PULSE 86; TEMP 37.2; O2SAT 92
[2017-09-23] MEDS: LACTATED RINGER'S 1000ML 1,000 ML IV SCH ×2 (01:06→11:55)
[2017-09-23] MEDS: OXYCODONE HCL IR 5 MG TAB (IMMEDIATE RELEASE) PO PRN ×2 (04:28→10:58)
[2017-09-23] MEDS: ACETAMINOPHEN IV 1000MG/100ML IV SCH ×2 (05:25→13:38)
[2017-09-23] MEDS: PIPERACILL/TAZOBAC IV 3.375 GM in DEXTROSE 5% 100ML 100 ML IV SCH ×2 (06:11→14:00)
[2017-09-23 07:31] VITALS: BP 124/72; PULSE 74; TEMP 36.9; O2SAT 94
--- NOTE | 2017-09-23 08:56 | Surgery Progress Note ---
Surgery Progress Note Date of Service Sep 23, 2017. Subjective Post OP Day: 4 + feeling well, + bowel movement (after supp), + flatus, + diet (fulls), No nausea Objective Vital Signs: Date Time Temp Pulse Resp B/P (MAP) Pulse Ox O2 Delivery O2 Flow Rate FiO2 09/23/17 07:31 36.9 74 16 124/72 (89) 94 Room Air 09/22/17 23:56 Room Air 09/22/17 22:45 37.2 86 16 118/71 (87) 92 Room Air 09/22/17 15:40 Room Air 09/22/17 15:12 36.6 93 18 127/74 (91) 92 Room Air Physical Exam: ALEJANDRO drainage (serous) Abdomen: soft, + distended (minimal) Incision(s): clean, dry Assessment & Plan perforated appendicitis advance diet d/c drain home today if tolerates diet
[2017-09-23 14:20] VITALS: BP 124/72; PULSE 74; TEMP 36.9; O2SAT 94
--- NOTE | 2017-09-26 08:17 | Discharge Summary ---
Discharge Summary Date of Service Sep 26, 2017. Admission Date/Reason Sep 20, 2017 at 13:13 Acute Appendicitis. Discharge Date/Disposition Sep 23, 2017 Home Diagnosis Principal Diagnosis: Ruptured Acute Appendicitis Secondary Diagnoses/Problems: Laparoscopic Appendectomy and Enterolysis Medication Reconciliation New Medications: Amoxicillin & Pot Clavulanate (Augmentin 875-125 mg) 1 Tab Tab 875 MG PO BID, #14 TAB Continued Medications: Hydrocodone/Acetaminophen 5MG/325MG ([place] 5MG/325MG) Tab 1-2 TABLET PO Q6 PRN for Pain, #30 TAB (This prescription has been renewed) For Initial Treatment Ondasetron Odt (Zofran Odt) 4 Mg Tab 4 MG SL Q6H for Nausea, #10 TAB Referrals Follow up Referrals: Surgery Referral - Within 2 Weeks with Layo Robert D.O. Admission Physical Exam As per Admitting History & Physical. Hospital Course 22 y/o male returned to the ED 2 days after initial visit c/o persistent abdominal pain. WBC was 13,[address] was consistent with perforated appendicitis. He was taken to the operating room that afternoon for laparoscopic appendectomy. He was admitted to the surgical floor and continued on IV Zosyn throughout admission. Pain control was marginal over the first several days. He continued to require IV analgesics. On POD 3 his pain control was better and his white cell count had normalized but he had had a low grade fever overnight. By day 4 he was tolerating oral analgesics and regular diet. He had been afebrile for more than 24 hours. ALEJANDRO drain was removed. His abdominal distention had resolved and his incisions were benign. He was stable for discharge. Discharge Instructions Please refer to the electronic Patient Visit Report (Discharge Instructions) for additional information.
== END 2017-09-23 14:47 | disposition home or self-care (01) | DRG 340 ==
LOC: C.EDB 11:46 → C.MSW 17:09 → ENRESERV 17:54 → OBSVTOIN 09-20 13:13
PROVIDERS: ADMIT Surgery; ATTEND Surgery
PROC: 0DTJ4ZZ Resection of Appendix, Percutaneous Endoscopic Approach (ICD-10-PCS; principal; 2017-09-19 15:45)
DX: K35.2 Acute appendicitis with generalized peritonitis (principal)